=== PATIENT | female | born 1990 ===

== ENCOUNTER 2019-09-04 16:42 | Inpatient (IN) | payer BC ==
[2019-09-04] MEDS ORDERED: Water For Irrigation,Sterile 1,000 ML Container IRR PRN (17:38)
[2019-09-04] MEDS ORDERED: Terbutaline 1 MG/ML SDV SUBCUT PRN (17:38)
[2019-09-04] MEDS ORDERED: Tranexamic Acid 1,000 MG in Sodium Chloride 0.9% 100 ML IV PRN (17:38)
[2019-09-04] MEDS ORDERED: Misoprostol 25 MCG (1/4 of 100 MCG) Tab VAG PRN (17:38)
[2019-09-04] MEDS ORDERED: Misoprostol 200 MCG Tab PO PRN (17:38)
[2019-09-04] MEDS ORDERED: Methylergonovine 0.2 MG/1 ML Amp IM PRN (17:38)
[2019-09-04] MEDS ORDERED: Ondansetron 4 MG/2 ML SDV IVPUSH PRN (17:38)
[2019-09-04] MEDS ORDERED: Nalbuphine 10 MG/1 ML Vial IVPUSH PRN (17:38)
[2019-09-04] MEDS ORDERED: Sodium Chloride 0.9% 10 ML Syringe FLUSH PRN (17:38)
[2019-09-04] MEDS ORDERED: Carboprost Tromethamine 250 MCG/1 ML Amp IM PRN (17:38)
[2019-09-04] MEDS ORDERED: Lidocaine 1% 50 ML MDV INJECT PRN (17:38)
[2019-09-04] MEDS ORDERED: Sodium Chloride 0.9% 10 ML SDV IV PRN (17:38)
[2019-09-04] MEDS ORDERED: Sodium Chloride 0.9% 2.5 ML Syringe FLUSH PRN (17:38)
[2019-09-04] MEDS ORDERED: Oxytocin/0.9 % Sodium Chloride 30 UNIT/500 ML BAG IV SCH ×2 (17:45)
[2019-09-04] MEDS ORDERED: Ampicillin 2 GM in Sodium Chloride 0.9% 100 ML IV ONE (18:00)
[2019-09-04] MEDS: Lactated Ringers 1,000 ML IV SCH (18:06)
[2019-09-04 18:32] LABS: BLOOD UREA NITROGEN,BUN 15 mg/dL (7.0-18.0); CARBON DIOXIDE,CO2 23.5 mmol/L (21.0-32.0); CHLORIDE,CL 103 mmol/L (98-107); GLUCOSE RANDOM 84 mg/dL (74-106); SODIUM,NA 140 mmol/L (136-145)
[2019-09-04] MEDS: Ampicillin 1 GM in Sodium Chloride 0.9% 50 ML IV SCH (22:29)
[2019-09-04] MEDS: Misoprostol 25 MCG (1/4 of 100 MCG) Tab VAG PRN (22:35)
[2019-09-05] MEDS: Ampicillin 1 GM in Sodium Chloride 0.9% 50 ML IV SCH ×6 (02:44→23:48)
[2019-09-05] MEDS: Misoprostol 25 MCG (1/4 of 100 MCG) Tab VAG PRN (02:48)
[2019-09-05] MEDS: Butorphanol 1 MG/ML SDV IVPUSH PRN ×2 (10:34→13:44)
[2019-09-05] MEDS: Lactated Ringers 1,000 ML IV SCH ×2 (13:08→15:24)
[2019-09-05] MEDS ORDERED: Magnesium Sulfate/Water 20 GM/500 ML BAG IV SCH (14:30)
[2019-09-05] MEDS ORDERED: Magnesium Sulfate/Water 4 GM in Premix Bag 1 BAG IV ONE (14:30)
[2019-09-05] MEDS ORDERED: Calcium Gluconate 10% 1 GM/10 ML SDV IV PRN (14:30)
[2019-09-05] MEDS ORDERED: Bupivicaine/fentaNYL/NS 250 ML ONE (14:39)
[2019-09-05] MEDS ORDERED: fentaNYL 100 MCG/2 ML SDV ONE (14:52)
--- NOTE | 2019-09-05 15:33 | PCM.PREANE ---
Preanesthetic Assessment - Procedure Proposed Procedure: Continuous Labor Epidural - Anesthesia/Transfusion/Family Hx Anesthesia History: Prior Anesthesia Without Reaction Transfusion History: No Prior Transfusion(s) - Review of Systems General: No Symptoms Pulmonary: No Symptoms Cardiovascular: No Symptoms Gastrointestinal: No Symptoms Neurological: No Symptoms Other: Reports: None - Physical Assessment Height: 5 ft 4 in Weight: 130.635 kg ASA Class: 3 Mental Status: Alert & Oriented x3 Airway Class: Mallampati = 2 Dentition: Reports: Normal Dentition Thyro-Mental Finger Breadths: 3 Mouth Opening Finger Breadths: 3 ROM/Head Extension: Full Lungs: Clear to Auscultation, Normal Respiratory Effort Cardiovascular: Regular Rate, Regular Rhythm - Lab Values: Laboratory Last Values WBC 13.18 K/uL (4.0-11.0) H 09/04/19 17: RBC 4.50 M/uL (4.30-5.90) 09/04/19 17: Hgb 13.1 g/dL (12.0-16.0) 09/04/19 17: Hct 39.6 % (36.0-46.0) 09/04/19 17: MCV 88.0 fL (80.0-98.0) 09/04/19 17: MCH 29.1 pg (27.0-32.0) 09/04/19 17: MCHC 33.1 g/dL (31.0-37.0) 09/04/19 17: RDW Std Deviation 50.6 fl (28.0-62.0) 09/04/19: RDW Coeff of Alia 16 % (11.0-15.0) H 09/04/19 17: Plt Count 264 K/uL (150-400) 09/04/19 17: MPV 13.40 fL (7.40-12.00) H 09/04/19 17: Nucleated RBC % 0.0 /100WBC 09/04/19 17: Nucleated RBCs # 0 K/uL 09/04/19 17: Sodium 140 mmol/L (136-145) 09/04/19 17: Potassium 4.0 mmol/L (3.5-5.1) 09/04/19 17: Chloride 103 mmol/L (98-107) 09/04/19 17:26 Carbon Dioxide 23.5 mmol/L (21.0-32.0) 09/04/19 17:26 BUN 15 mg/dL (7.0-18.0) 09/04/19 17:26 Creatinine 0.8 mg/dL (0.6-1.0) 09/04/19 17:26 Est Cr Clr Drug Dosing 90.41 mL/min 09/04/19 17:26 Estimated GFR (MDRD) > 60.0 ml/min 09/04/19 17:26 Glucose 84 mg/dL (74-106) 09/04/19 17:26 Uric Acid 4.9 mg/dL (2.6-7.2) 09/04/19 17:26 Calcium 9.3 mg/dL (8.5-10.1) 09/04/19 17:26 Total Bilirubin 0.2 mg/dL (0.2-1.0) 09/04/19 17:26 AST 26 IU/L (15-37) 09/04/19 17:26 ALT 19 IU/L (14-63) 09/04/19 17:26 Alkaline Phosphatase 118 U/L (46-116) H 09/04/19 17:26 Total Protein 6.3 g/dL (6.4-8.2) L 09/04/19 17:26 Albumin 2.6 g/dL (3.4-5.0) L 09/04/19 17:26 Globulin 3.7 g/dL (2.6-4.0) 09/04/19 17:26 Albumin/Globulin Ratio 0.7 (0.9-1.6) L 09/04/19 17:26 Ur Random Creatinine 131.4 mg/dL 09/04/19 16:30 U Random Total Protein 40.8 mg/dL (<11.9) H 09/04/19 16:30 Protein/Creatinin Ratio 0.3 09/04/19 16:30 SARS-CoV-2 RNA (RT-PCR) NEGATIVE (NEGATIVE) 09/04/19 17:33 Blood Type O POSITIVE 09/04/19 17:26 Antibody Screen NEGATIVE 09/04/19 17:26 - Allergies Allergies/Adverse Reactions: Allergies Allergy/AdvReac Type Severity Reaction Status Date / Time No Known Allergies Allergy Verified 09/04/19 17:35 - Anesthesia Plan Free Text/Narrative:: Continuous Labor Epidural - Acknowledgements Anesthesia Type Planned: Epidural Pt an Appropriate Candidate for the Planned Anesthesia: Yes Alternatives and Risks of Anesthesia Discussed w Pt/Guardian: Yes Pt/Guardian Understands and Agrees with Anesthesia Plan: Yes PreAnesthesia Questionnaire HEENT History: Reports: Impaired Vision Cardiovascular History: Reports: Other (See Below) Other Cardiovascular History: PIH Respiratory History: Reports: None Gastrointestinal History: Reports: None Genitourinary History: Reports: None [employer] History: Reports: : 2 Para: 1 LMP (Approximate): Musculoskeletal History: Reports: Other (See Below) Other Musculoskeletal History: hx broken right foot Neurological History: Reports: None Psychiatric History: Reports: None Endocrine/Metabolic History: Reports: None Hematologic History: Reports: None Immunologic History: Reports: None Oncologic (Cancer) History: Reports: None Dermatologic History: Reports: None - Infectious Disease History Infectious Disease History: Reports: None - Past Surgical History HEENT Surgical History: Reports: Oral Surgery Cardiovascular Surgical History: Reports: None Musculoskeletal Surgical History: Reports: None - SUBSTANCE USE Smoking Status *Q: Never Smoker Recreational Drug Use History: No - HOME MEDS Home Medications: Home Meds Acetaminophen [Tylenol Extra Strength] 1 - 2 tab PO PRN 09/04/19 [History] Calcium Carbonate [Tums Extra Strength] 1 - 2 tab PO PRN 09/04/19 [History] No122/Iron/Folic Acid [ Multi Tablet] 1 tab PO DAILY 09/04/19 [History] - CURRENT (IN HOUSE) MEDS Current Meds: Current Medications Butorphanol Tartrate (Stadol) 1 mg IVPUSH Q1H PRN PRN Reason: Pain Last Admin: 09/05/19 13:44 Dose: 1 mg Documented by: Calcium Gluconate (Calcium Gluconate) 1 gm IV ASDIRECTED PRN PRN Reason: respiratory distress Carboprost Tromethamine (Hemabate Ds) 250 mcg IM ASDIRECTED PRN PRN Reason: Post Hemorrhage Oxytocin/Sodium Chloride (Oxytocin 30 Unit/500 Ml-Ns) 30 unit in 500 mls @ 999 mls/hr IV TITRATE KARISHMA Tranexamic Acid 1,000 mg/ (Sodium Chloride) 110 mls @ 660 mls/hr IV ONETIME PRN PRN Reason: Bleeding Oxytocin/Sodium Chloride (Oxytocin 30 Unit/500 Ml-Ns) 30 unit in 500 mls @ 2 mls/hr IV TITRATE [facility]; Protocol Last Titration: 09/05/19 15:23 Dose: 0 munits/min, 0 mls/hr Documented by: Ampicillin Sodium 1 gm/ Sodium (Chloride) 50 mls @ 100 mls/hr IV Q4H [facility] Last Admin: 09/05/19 14:04 Dose: 100 mls/hr Documented by: Lactated Ringer's (Ringers, Lactated) 1,000 mls @ 150 mls/hr IV ASDIRECTED [facility] Last Admin: 09/05/19 15:24 Dose: 999 mls/hr Documented by: Magnesium Sulfate (Magnesium Sulfate In Water Premix) 20 gm in 500 mls @ 50 mls/hr IV ASDIRECTED [facility] Lidocaine HCl (Xylocaine 1%) 50 ml INJECT ONETIME PRN PRN Reason: Laceration repair Methylergonovine Maleate (Methergine) 0.2 mg IM ASDIRECTED PRN PRN Reason: Post Hemorrhage Misoprostol (Cytotec) 200 mcg PO ONETIME PRN PRN Reason: Post Hemorrhage Misoprostol (Cytotec) 25 mcg VAG ONETIME PRN PRN Reason: Cervical Ripening Last Admin: 09/04/19 18:10 Dose: 25 mcg Documented by: Misoprostol (Cytotec) 25 mcg VAG Q4H PRN PRN Reason: Cervical Ripening Last Admin: 09/05/19 02:48 Dose: 25 mcg Documented by: Nalbuphine HCl (Nubain) 10 mg IVPUSH Q1H PRN PRN Reason: Pain (severe 7-10) Ondansetron HCl (Zofran) 4 mg IVPUSH Q6H PRN PRN Reason: Nausea/Vomiting Sodium Chloride (Saline Flush) 10 ml FLUSH ASDIRECTED PRN PRN Reason: Keep Vein Open Sodium Chloride (Saline Flush) 2.5 ml FLUSH ASDIRECTED PRN PRN Reason: Keep Vein Open Sodium Chloride (Normal Saline) 10 ml IV ASDIRECTED PRN PRN Reason: IV Use Sterile Water (Sterile Water For Irrigation) 1,000 ml IRR ASDIRECTED PRN PRN Reason: delivery Terbutaline Sulfate (Brethine) 0.25 mg SUBCUT ASDIRECTED PRN PRN Reason: Tacysystole Discontinued Medications Fentanyl (Sublimaze) Confirm Administered Dose 100 mcg .ROUTE .STK-MED ONE Stop: 09/05/19 14:53 Ampicillin Sodium 2 gm/ Sodium (Chloride) 100 mls @ 200 mls/hr IV ONETIME ONE Stop: 09/04/19 18:29 Last Admin: 09/04/19 18:06 Dose: 200 mls/hr Documented by: Magnesium Sulfate 4 gm/ Premix 100 mls @ 300 mls/hr IV BOLUS ONE Stop: 09/05/19 14:49 Fentanyl/Bupivacaine HCl (Fentanyl/Bupivacaine/Ns 2 Mcg-0.125% 250 Ml) Confirm Administered Dose 250 mls @ as directed .ROUTE .STK-MED ONE Stop: 09/05/19 14:40
[2019-09-05] MEDS ORDERED: Bisacodyl 10 MG Supp RECTAL PRN (18:57)
[2019-09-05] MEDS ORDERED: Ibuprofen 400 MG Tab PO PRN (18:57)
[2019-09-05] MEDS ORDERED: Benzocaine/Menthol 20%-0.5% Spray 78 GM Cannister TOP PRN (18:57)
[2019-09-05] MEDS ORDERED: Acetaminophen 500 MG Tab PO PRN ×2 (18:57)
[2019-09-05] MEDS ORDERED: Witch Hazel Medicated Pads 40/Jar TOP PRN (18:57)
[2019-09-05] MEDS ORDERED: Lanolin 100% Cream 7 GM Tube TOP PRN (18:57)
--- NOTE | 2019-09-06 03:34 | OR ---
SURGEON: Liang Lee MD DATE OF PROCEDURE: 09/05/2019 INDICATION FOR PROCEDURE: A 29-year-old G2, P1-0-0-1 at 40 weeks and 4 days, admitted for induction of labor due to oligohydramnios and preeclampsia without severe features. She was found to have an TEA of 4.3. Her blood pressure was mildly elevated at 140/90s. She was asymptomatic. Preeclampsia labs were completed, which were normal except for a protein creatinine ratio of 0.3. She received 3 doses of Cytotec and was started on Pitocin. She is GBS positive and received ampicillin. She continued to make cervical change on Pitocin and had AROM. She then had moderate amount of blood clots, likely from marginal placental abruption. The heart rate tracing was mostly category 1 with episodes of early and late decels. IUPC was placed and induction continued. Her blood pressure continued to be normotensive to low mild ranges. She progressed to fully dilated and began pushing with contractions. PREOPERATIVE DIAGNOSES: 1. Gutierres intrauterine at 40 weeks and 4 days. 2. Oligohydramnios. 3. Preeclampsia without severe features. 4. Marginal placental abruption. POSTOPERATIVE DIAGNOSES: 1. Gutierres intrauterine at 40 weeks and 4 days. 2. Oligohydramnios. 3. Preeclampsia without severe features. 4. Marginal placental abruption. ANESTHESIA: Epidural. ANESTHESIOLOGIST: FINDINGS: Viable male infant, score of 8 and 9, weight of 7 pounds and 6 ounces. The baby had nuchal cord x2 and body cord x1. ESTIMATED BLOOD LOSS: 300 mL. DESCRIPTION OF PROCEDURE: The patient pushed for approximately 30 minutes with good descent from 0 station. head delivered in occiput-anterior position over an intact perineum. A tight double nuchal cord was noted. Anterior shoulder delivered easily, followed by posterior shoulder and remaining body. Nuchal cord was reduced after delivery. She also had a body cord x1. The baby was placed on maternal chest and evaluated by awaiting nursery staff. Baby was pink, crying, and moving all extremities immediately after delivery. Umbilical cord was clamped and cut after 60 seconds and no longer pulsating. Umbilical cord gases were obtained. The placenta was removed with gentle traction on the umbilical cord. It was examined and found to be intact with 3-vessel cord. Fundal massage was performed and the uterus was firm and below the umbilicus. The bleeding was light. The perineum was examined and no lacerations were noted. She was given care instructions and preeclampsia precautions were reviewed. She tolerated the procedure well without complications. JACLYN PEREZ /[id number] MTDD
[2019-09-06] MEDS: Ibuprofen 800 MG Tab PO PRN ×3 (03:56→23:58)
[2019-09-06 06:43] LABS: BLOOD UREA NITROGEN,BUN 10 mg/dL (7.0-18.0); CARBON DIOXIDE,CO2 23.7 mmol/L (21.0-32.0); CHLORIDE,CL 106 mmol/L (98-107); GLUCOSE RANDOM 94 mg/dL (74-106); POTASSIUM,K 3.7 mmol/L (3.5-5.1); SODIUM,NA 138 mmol/L (136-145)
--- NOTE | 2019-09-06 07:51 | PCM48HPAN ---
Post Anesthesia Note - EVALUATION WITHIN 48HRS OF ANESTHETIC Vital Signs in Normal Range: Yes Patient Participated in Evaluation: Yes Respiratory Function Stable: Yes Airway Patent: Yes Cardiovascular Function Stable: Yes Hydration Status Stable: Yes Pain Control Satisfactory: Yes Nausea and Vomiting Control Satisfactory: Yes Mental Status Recovered: Yes Vital Signs: Last Vital Signs Temp 35.9 C L 09/06/19 05:11 Pulse 64 09/06/19 05:11 Resp 16 09/06/19 05:11 BP 125/64 09/06/19 05:11 Pulse Ox 93 L 09/06/19 05:11
[2019-09-06] MEDS: Docusate Sodium 100 MG Cap PO PRN (09:57)
--- NOTE | 2019-09-06 12:01 | PCM.PNPP ---
- General Info Date of Service: 09/06/19 Functional Status: Reports: Pain Controlled, Tolerating Diet, Ambulating, Urinating - Review of Systems General: Reports: No Symptoms HEENT: Reports: No Symptoms Pulmonary: Reports: No Symptoms Cardiovascular: Reports: No Symptoms Gastrointestinal: Reports: No Symptoms Genitourinary: Reports: No Symptoms Musculoskeletal: Reports: No Symptoms Skin: Reports: No Symptoms Neurological: Reports: No Symptoms Psychiatric: Reports: No Symptoms - Patient Data Vital Signs - Most Recent: Last Vital Signs Temp 36.1 C 09/06/19 08:00 Pulse 66 09/06/19 09:45 Resp 16 09/06/19 08:00 BP 111/66 09/06/19 09:45 Pulse Ox 95 09/06/19 08:00 Weight - Most Recent: 288 lb Lab Results - Last 24 Hours: Laboratory Results - last 24 hr 09/04/19 09/06/19 09/06/19 Range/Units 17:26 05:55 05:55 WBC 13.35 H (4.0-11.0) K/uL RBC 3.83 L (4.30-5.90) M/uL Hgb 11.2 L (12.0-16.0) g/dL Hct 34.0 L (36.0-46.0) % MCV 88.8 (80.0-98.0) fL MCH 29.2 (27.0-32.0) pg MCHC 32.9 (31.0-37.0) g/dL RDW Std Deviation 51.8 (28.0-62.0) fl RDW Coeff of Alia 16 H (11.0-15.0) % Plt Count 231 (150-400) K/uL MPV 13.10 H (7.40-12.00) fL Neut % (Auto) 75.6 (48.0-80.0) % Lymph % (Auto) 16.2 (16.0-40.0) % [place] % (Auto) 7.9 (0.0-15.0) % Eos % (Auto) 0.2 (0.0-7.0) % Baso % (Auto) 0.1 (0.0-1.5) % Neut # (Auto) 10.1 H (1.4-5.7) K/uL Lymph # (Auto) 2.2 (0.6-2.4) K/uL [place] # (Auto) 1.1 H (0.0-0.8) K/uL Eos # (Auto) 0.0 (0.0-0.7) K/uL Baso # (Auto) 0.0 (0.0-0.1) K/uL Nucleated RBC % 0.0 /100WBC Nucleated RBCs # 0 K/uL Sodium 138 (136-145) mmol/L Potassium 3.7 (3.5-5.1) mmol/L Chloride 106 (98-107) mmol/L Carbon Dioxide 23.7 (21.0-32.0) mmol/L BUN 10 (7.0-18.0) mg/dL Creatinine 0.8 (0.6-1.0) mg/dL Est Cr Clr Drug Dosing 90.41 mL/min Estimated GFR (MDRD) > 60.0 ml/min Glucose 94 (74-106) mg/dL Uric Acid (2.6-7.2) mg/dL Calcium 7.9 L (8.5-10.1) mg/dL Total Bilirubin 0.5 (0.2-1.0) mg/dL AST 21 (15-37) IU/L ALT 16 (14-63) IU/L Alkaline Phosphatase 94 (46-116) U/L Total Protein 5.5 L (6.4-8.2) g/dL Albumin 2.0 L (3.4-5.0) g/dL Globulin 3.5 (2.6-4.0) g/dL Albumin/Globulin Ratio 0.6 L (0.9-1.6) Blood Type O POSITIVE Antibody Screen NEGATIVE Crossmatch See Detail 09/06/19 Range/Units 05:55 WBC (4.0-11.0) K/uL RBC (4.30-5.90) M/uL Hgb (12.0-16.0) g/dL Hct (36.0-46.0) % MCV (80.0-98.0) fL MCH (27.0-32.0) pg MCHC (31.0-37.0) g/dL RDW Std Deviation (28.0-62.0) fl RDW Coeff of Alia (11.0-15.0) % Plt Count (150-400) K/uL MPV (7.40-12.00) fL Neut % (Auto) (48.0-80.0) % Lymph % (Auto) (16.0-40.0) % [place] % (Auto) (0.0-15.0) % Eos % (Auto) (0.0-7.0) % Baso % (Auto) (0.0-1.5) % Neut # (Auto) (1.4-5.7) K/uL Lymph # (Auto) (0.6-2.4) K/uL [place] # (Auto) (0.0-0.8) K/uL Eos # (Auto) (0.0-0.7) K/uL Baso # (Auto) (0.0-0.1) K/uL Nucleated RBC % /100WBC Nucleated RBCs # K/uL Sodium (136-145) mmol/L Potassium (3.5-5.1) mmol/L Chloride (98-107) mmol/L Carbon Dioxide (21.0-32.0) mmol/L BUN (7.0-18.0) mg/dL Creatinine (0.6-1.0) mg/dL Est Cr Clr Drug Dosing mL/min Estimated GFR (MDRD) ml/min Glucose (74-106) mg/dL Uric Acid 5.3 (2.6-7.2) mg/dL Calcium (8.5-10.1) mg/dL Total Bilirubin (0.2-1.0) mg/dL AST (15-37) IU/L ALT (14-63) IU/L Alkaline Phosphatase (46-116) U/L Total Protein (6.4-8.2) g/dL Albumin (3.4-5.0) g/dL Globulin (2.6-4.0) g/dL Albumin/Globulin Ratio (0.9-1.6) Blood Type Antibody Screen Crossmatch Med Orders - Current: Current Medications Acetaminophen (Tylenol Extra Strength) 500 mg PO Q4H PRN PRN Reason: Pain Acetaminophen (Tylenol Extra Strength) 1,000 mg PO Q4H PRN PRN Reason: Pain Benzocaine/Menthol (Dermoplast Pain Relief 20%-0.5% [place]) 0 gm TOP ASDIRECTED PRN PRN Reason: Perineal Comfort Measure Bisacodyl (Dulcolax) 10 mg RECTAL ONETIME PRN PRN Reason: Constipation Calcium Gluconate (Calcium Gluconate) 1 gm IV ASDIRECTED PRN PRN Reason: respiratory distress Carboprost Tromethamine (Hemabate Ds) 250 mcg IM ASDIRECTED PRN PRN Reason: Post Hemorrhage Docusate Sodium (Colace) 100 mg PO BID PRN PRN Reason: Constipation Last Admin: 09/06/19 09:57 Dose: 100 mg Documented by: Emollient Ointment (Lansinoh Hpa) 0 gm TOP ASDIRECTED PRN PRN Reason: Sore Nipples Oxytocin/Sodium Chloride (Oxytocin 30 Unit/500 Ml-Ns) 30 unit in 500 mls @ 999 mls/hr IV TITRATE [facility] Tranexamic Acid 1,000 mg/ (Sodium Chloride) 110 mls @ 660 mls/hr IV ONETIME PRN PRN Reason: Bleeding Oxytocin/Sodium Chloride (Oxytocin 30 Unit/500 Ml-Ns) 30 unit in 500 mls @ 2 mls/hr IV TITRATE [facility]ISH[facility]; Protocol Last Titration: 09/05/19 18:33 Dose: 999 munits/min, 999 mls/hr Documented by: Lactated Ringer's (Ringers, Lactated) 1,000 mls @ 150 mls/hr IV ASDIRECTED KARISHMA Last Infusion: 09/05/19 16:00 Dose: 150 mls/hr Documented by: Magnesium Sulfate (Magnesium Sulfate In Water Premix) 20 gm in 500 mls @ 50 mls/hr IV ASDIRECTED [facility] Ibuprofen (Motrin) 400 mg PO Q4H PRN PRN Reason: Pain Ibuprofen (Motrin) 800 mg PO Q6H PRN PRN Reason: Pain Last Admin: 09/06/19 09:57 Dose: 800 mg Documented by: Lidocaine HCl (Xylocaine 1%) 50 ml INJECT ONETIME PRN PRN Reason: Laceration repair Methylergonovine Maleate (Methergine) 0.2 mg IM ASDIRECTED PRN PRN Reason: Post Hemorrhage Misoprostol (Cytotec) 200 mcg PO ONETIME PRN PRN Reason: Post Hemorrhage Misoprostol (Cytotec) 25 mcg VAG ONETIME PRN PRN Reason: Cervical Ripening Last Admin: 09/04/19 18:10 Dose: 25 mcg Documented by: Misoprostol (Cytotec) 25 mcg VAG Q4H PRN PRN Reason: Cervical Ripening Last Admin: 09/05/19 02:48 Dose: 25 mcg Documented by: Ondansetron HCl (Zofran) 4 mg IVPUSH Q6H PRN PRN Reason: Nausea/Vomiting Sodium Chloride (Saline Flush) 10 ml FLUSH ASDIRECTED PRN PRN Reason: Keep Vein Open Sodium Chloride (Saline Flush) 2.5 ml FLUSH ASDIRECTED PRN PRN Reason: Keep Vein Open Sodium Chloride (Normal Saline) 10 ml IV ASDIRECTED PRN PRN Reason: IV Use Terbutaline Sulfate (Brethine) 0.25 mg SUBCUT ASDIRECTED PRN PRN Reason: Tacysystole Witch Cee (Tucks) 1 pad TOP ASDIRECTED PRN PRN Reason: comfort care Discontinued Medications Butorphanol Tartrate (Stadol) 1 mg IVPUSH Q1H PRN PRN Reason: Pain Last Admin: 09/05/19 13:44 Dose: 1 mg Documented by: Fentanyl (Sublimaze) Confirm Administered Dose 100 mcg .ROUTE .STK-MED ONE Stop: 09/05/19 14:53 Last Admin: 09/05/19 19:52 Dose: Not Given Documented by: Ampicillin Sodium 1 gm/ Sodium (Chloride) 50 mls @ 100 mls/hr IV Q4H [facility] Last Admin: 09/05/19 23:48 Dose: Not Given Documented by: Ampicillin Sodium 2 gm/ Sodium (Chloride) 100 mls @ 200 mls/hr IV ONETIME ONE Stop: 09/04/19 18:29 Last Admin: 09/04/19 18:06 Dose: 200 mls/hr Documented by: Magnesium Sulfate 4 gm/ Premix 100 mls @ 300 mls/hr IV BOLUS ONE Stop: 09/05/19 14:49 Last Admin: 09/05/19 19:52 Dose: Not Given Documented by: Fentanyl/Bupivacaine HCl (Fentanyl/Bupivacaine/Ns 2 Mcg-0.125% 250 Ml) Confirm Administered Dose 250 mls @ as directed .ROUTE .STK-MED ONE Stop: 09/05/19 14:40 Last Admin: 09/05/19 19:52 Dose: Not Given Documented by: Nalbuphine HCl (Nubain) 10 mg IVPUSH Q1H PRN PRN Reason: Pain (severe 7-10) Sterile Water (Sterile Water For Irrigation) 1,000 ml IRR ASDIRECTED PRN PRN Reason: delivery - Infant Interaction Infant Interaction: Holding Infant Infant Feeding: Attempted ; Nursed Fair/Poor, Bottle Fed Infant Support Person: Significant Other - Recovery Exam Fundal Tone: Firm Fundal Level: 1 Fingerbreadths Above Umbilicus Fundal Placement: Midline Lochia Amount: Scant Lochia Color: Rubra/Red Perineum Description: Intact, Minimal Bruising/Swelling Episiotomy/Laceration: None Bladder Status: Voiding Urinary Elimination: Voided - Exam General: Oriented, Cooperative, No Acute Distress HEENT: Pupils Equal, Pupils Reactive, EOMI Neck: Supple, Trachea Midline, No JVD Lungs: Normal Respiratory Effort GI/Abdominal Exam: Soft, Non-Tender, No Organomegaly, No Distention Extremities: Normal Inspection, Normal Range of Motion, Non-Tender, Other (2+ nonpitting edema) Skin: Warm, Dry, Intact Neurological: No New Focal Deficit Psy/Mental Status: Alert, Normal Affect, Normal Mood - Problem List Review Problem List Initiated/Reviewed/Updated: Yes - My Orders Last 24 Hours: My Active Orders 09/05/19 14:30 Height and Weight [RC] DAILY Intake and Output [RC] QSHIFT Vital Signs [RC] ASDIRECTED Calcium Gluconate 1 gm IV ASDIRECTED PRN Magnesium Sulfate/Water [Magnesium Sulfate in Water Premix] 20 gm in 500 ml IV ASDIRECTED Deep Tendon Reflexes [WOMSER] Q1H Electronic Heart Tones Ext w TOCO [WOMSER] Per Unit Routine 09/05/19 14:31 Equipment to Bedside [RC] PRN 09/05/19 14:32 Notify Provider Status Change [RC] ASDIRECTED 09/05/19 15:30 Deep Tendon Reflexes [WOMSER] Q1H 09/05/19 Dinner Regular Diet [DIET] 09/05/19 16:30 Deep Tendon Reflexes [WOMSER] Q1H 09/05/19 17:30 Deep Tendon Reflexes [WOMSER] Q1H 09/05/19 17:31 RED BLOOD CELLS LP [BBK] Stat 09/05/19 18:30 Deep Tendon Reflexes [WOMSER] Q1H 09/05/19 18:57 Acetaminophen [Tylenol Extra Strength] 1,000 mg PO Q4H PRN Acetaminophen [Tylenol Extra Strength] 500 mg PO Q4H PRN Benzocaine/Menthol [Dermoplast Pain Relief 20%-0.5% [place]] 0 gm TOP ASDIRECTED PRN Docusate Sodium [Colace] 100 mg PO BID PRN Ibuprofen [Motrin] 400 mg PO Q4H PRN Ibuprofen [Motrin] 800 mg PO Q6H PRN Lanolin [Lansinoh HPA] See Dose Instructions TOP ASDIRECTED PRN bisacodyL [Dulcolax] 10 mg RECTAL ONETIME PRN witch Cee [Tucks] 1 pad TOP ASDIRECTED PRN 09/05/19 18:58 Patient Status [ADT] Routine May Shower [RC] ASDIRECTED Up ad [place] [RC] ASDIRECTED Vital Signs [RC] PER UNIT ROUTINE Assess Lochia [WOMSER] Per Unit Routine Assess Uterine Involution [WOMSER] Per Unit Routine Peripheral IV Discontinue [OM.PC] Routine 09/05/19 18:59 Ice Therapy [OM.PC] Per Unit Routine Perineal Care [OM.PC] Per Unit Routine 09/05/19 19:00 Cooling Warming Measures [RC] ASDIRECTED 09/05/19 19:30 Deep Tendon Reflexes [WOMSER] Q1H 09/05/19 20:30 Deep Tendon Reflexes [WOMSER] Q1H 09/05/19 21:30 Deep Tendon Reflexes [WOMSER] Q1H 09/05/19 22:30 Deep Tendon Reflexes [WOMSER] Q1H 09/05/19 23:30 Deep Tendon Reflexes [WOMSER] Q1H 09/06/19 00:30 Deep Tendon Reflexes [WOMSER] Q1H 09/06/19 01:30 Deep Tendon Reflexes [WOMSER] Q1H 09/06/19 02:30 Deep Tendon Reflexes [WOMSER] Q1H 09/06/19 03:30 Deep Tendon Reflexes [WOMSER] Q1H 09/06/19 04:30 Deep Tendon Reflexes [WOMSER] Q1H 09/06/19 05:30 Deep Tendon Reflexes [WOMSER] Q1H 09/06/19 06:30 Deep Tendon Reflexes [WOMSER] Q1H 09/06/19 07:30 Deep Tendon Reflexes [WOMSER] Q1H 09/06/19 08:30 Deep Tendon Reflexes [WOMSER] Q1H 09/06/19 09:30 Deep Tendon Reflexes [WOMSER] Q109/06/19 10:30 Deep Tendon Reflexes [WOMSER] Q1H 09/06/19 11:30 Deep Tendon Reflexes [WOMSER] Q1H 09/06/19 12:30 Deep Tendon Reflexes [WOMSER] Q109/06/19 13:30 Deep Tendon Reflexes [WOMSER] Q109/06/19 14:30 Deep Tendon Reflexes [WOMSER] Q1H - Assessment Assessment:: 29yo PPD1 s/p , complicated with oligohydramnios, preeclampsia without severe features and marginal placental abruption - Plan Plan:: - vitals stable, BP normotensive - Hgb 11.2, bleeding light, denies s/s of anemia - ambulating and voiding - breast and bottlefeeding - plan for discharge tomorrow. Will check BP at home daily, reviewed s/s of preeclampsia. BP check in 1 week.
[2019-09-07] MEDS: Docusate Sodium 100 MG Cap PO PRN (10:50)
--- NOTE | 2019-09-07 10:53 | PCM.PNPP ---
- General Info Date of Service: 09/07/19 Functional Status: Reports: Pain Controlled, Tolerating Diet, Ambulating, Urinating - Review of Systems General: Reports: No Symptoms HEENT: Reports: No Symptoms Pulmonary: Reports: No Symptoms Cardiovascular: Reports: No Symptoms Gastrointestinal: Reports: No Symptoms Genitourinary: Reports: No Symptoms Musculoskeletal: Reports: No Symptoms Skin: Reports: No Symptoms Neurological: Reports: No Symptoms Psychiatric: Reports: No Symptoms - Patient Data Vital Signs - Most Recent: Last Vital Signs Temp 36.3 C 09/07/19 08:00 Pulse 84 09/07/19 08:00 Resp 12 09/07/19 08:00 BP 129/60 09/07/19 08:00 Pulse Ox 97 09/07/19 08:00 Weight - Most Recent: 288 lb Lab Results - Last 24 Hours: Laboratory Results - last 24 hr 09/04/19 Range/Units 17:26 RPR Non-Reac (Non-Reac) Med Orders - Current: Current Medications Acetaminophen (Tylenol Extra Strength) 500 mg PO Q4H PRN PRN Reason: Pain Acetaminophen (Tylenol Extra Strength) 1,000 mg PO Q4H PRN PRN Reason: Pain Benzocaine/Menthol (Dermoplast Pain Relief 20%-0.5% [place]) 0 gm TOP ASDIRECTED PRN PRN Reason: Perineal Comfort Measure Bisacodyl (Dulcolax) 10 mg RECTAL ONETIME PRN PRN Reason: Constipation Calcium Gluconate (Calcium Gluconate) 1 gm IV ASDIRECTED PRN PRN Reason: respiratory distress Carboprost Tromethamine (Hemabate Ds) 250 mcg IM ASDIRECTED PRN PRN Reason: Post Hemorrhage Docusate Sodium (Colace) 100 mg PO BID PRN PRN Reason: Constipation Last Admin: 09/07/19 10:50 Dose: 100 mg Documented by: Emollient Ointment (Lansinoh Hpa) 0 gm TOP ASDIRECTED PRN PRN Reason: Sore Nipples Oxytocin/Sodium Chloride (Oxytocin 30 Unit/500 Ml-Ns) 30 unit in 500 mls @ 999 mls/hr IV TITRATE KARISHMA Tranexamic Acid 1,000 mg/ (Sodium Chloride) 110 mls @ 660 mls/hr IV ONETIME PRN PRN Reason: Bleeding Oxytocin/Sodium Chloride (Oxytocin 30 Unit/500 Ml-Ns) 30 unit in 500 mls @ 2 mls/hr IV TITRATE KARISHMA; Protocol Last Titration: 09/05/19 18:33 Dose: 999 munits/min, 999 mls/hr Documented by: Lactated Ringer's (Ringers, Lactated) 1,000 mls @ 150 mls/hr IV ASDIRECTED KARISHMA Last Infusion: 09/05/19 16:00 Dose: 150 mls/hr Documented by: Magnesium Sulfate (Magnesium Sulfate In Water Premix) 20 gm in 500 mls @ 50 mls/hr IV ASDIRECTED KARISHMA Ibuprofen (Motrin) 400 mg PO Q4H PRN PRN Reason: Pain Ibuprofen (Motrin) 800 mg PO Q6H PRN PRN Reason: Pain Last Admin: 09/06/19 23:58 Dose: 800 mg Documented by: Lidocaine HCl (Xylocaine 1%) 50 ml INJECT ONETIME PRN PRN Reason: Laceration repair Methylergonovine Maleate (Methergine) 0.2 mg IM ASDIRECTED PRN PRN Reason: Post Hemorrhage Misoprostol (Cytotec) 200 mcg PO ONETIME PRN PRN Reason: Post Hemorrhage Misoprostol (Cytotec) 25 mcg VAG ONETIME PRN PRN Reason: Cervical Ripening Last Admin: 09/04/19 18:10 Dose: 25 mcg Documented by: Misoprostol (Cytotec) 25 mcg VAG Q4H PRN PRN Reason: Cervical Ripening Last Admin: 09/05/19 02:48 Dose: 25 mcg Documented by: Ondansetron HCl (Zofran) 4 mg IVPUSH Q6H PRN PRN Reason: Nausea/Vomiting Sodium Chloride (Saline Flush) 10 ml FLUSH ASDIRECTED PRN PRN Reason: Keep Vein Open Sodium Chloride (Saline Flush) 2.5 ml FLUSH ASDIRECTED PRN PRN Reason: Keep Vein Open Sodium Chloride (Normal Saline) 10 ml IV ASDIRECTED PRN PRN Reason: IV Use Terbutaline Sulfate (Brethine) 0.25 mg SUBCUT ASDIRECTED PRN PRN Reason: Tacysystole Witch Cee (Tucks) 1 pad TOP ASDIRECTED PRN PRN Reason: comfort care Discontinued Medications Butorphanol Tartrate (Stadol) 1 mg IVPUSH Q1H PRN PRN Reason: Pain Last Admin: 09/05/19 13:44 Dose: 1 mg Documented by: Fentanyl (Sublimaze) Confirm Administered Dose 100 mcg .ROUTE .STK-MED ONE Stop: 09/05/19 14:53 Last Admin: 09/05/19 19:52 Dose: Not Given Documented by: Ampicillin Sodium 1 gm/ Sodium (Chloride) 50 mls @ 100 mls/hr IV Q4H KARISHMA Last Admin: 09/05/19 23:48 Dose: Not Given Documented by: Ampicillin Sodium 2 gm/ Sodium (Chloride) 100 mls @ 200 mls/hr IV ONETIME ONE Stop: 09/04/19 18:29 Last Admin: 09/04/19 18:06 Dose: 200 mls/hr Documented by: Magnesium Sulfate 4 gm/ Premix 100 mls @ 300 mls/hr IV BOLUS ONE Stop: 09/05/19 14:49 Last Admin: 09/05/19 19:52 Dose: Not Given Documented by: Fentanyl/Bupivacaine HCl (Fentanyl/Bupivacaine/Ns 2 Mcg-0.125% 250 Ml) Confirm Administered Dose 250 mls @ as directed .ROUTE .STK-MED ONE Stop: 09/05/19 14:40 Last Admin: 09/05/19 19:52 Dose: Not Given Documented by: Nalbuphine HCl (Nubain) 10 mg IVPUSH Q1H PRN PRN Reason: Pain (severe 7-10) Sterile Water (Sterile Water For Irrigation) 1,000 ml IRR ASDIRECTED PRN PRN Reason: delivery - Interaction Interaction: Holding Infant Infant Feeding: Attempted ; Nursed Fair/Poor, Bottle Fed Infant Support Person: Significant Other - Recovery Exam Fundal Tone: Firm Fundal Level: 2 Fingerbreadths Below Umbilicus Fundal Placement: Midline Lochia Amount: Scant Lochia Color: Rubra/Red Perineum Description: Intact, Minimal Bruising/Swelling Episiotomy/Laceration: None Bladder Status: Voiding Urinary Elimination: Voided - Exam General: Alert, Oriented, Cooperative, No Acute Distress HEENT: Pupils Equal, Pupils Reactive Neck: Supple, Trachea Midline, No JVD Lungs: Clear to Auscultation, Normal Respiratory Effort Cardiovascular: Regular Rate, Regular Rhythm, No Murmurs GI/Abdominal Exam: Normal Bowel Sounds, Soft, Non-Tender, No Distention Extremities: Normal Inspection, Normal Range of Motion, Non-Tender, No Pedal Edema Skin: Warm, Dry, Intact Wound/Incisions: Healing Well Neurological: No New Focal Deficit Psy/Mental Status: Alert, Normal Affect, Normal Mood - Problem List Review Problem List Initiated/Reviewed/Updated: Yes - My Orders Last 24 Hours: My Active Orders 09/06/19 10:30 Deep Tendon Reflexes [[facility]] Q1H 09/06/19 11:30 Deep Tendon Reflexes [[facility]] Q1H 09/06/19 12:30 Deep Tendon Reflexes [[facility]ER] Q1H 09/06/19 13:30 Deep Tendon Reflexes [[facility]ER] Q1H 09/06/19 14:30 Deep Tendon Reflexes [[facility]OMSER] Q1H 09/07/19 10:50 Ready for Discharge [RC] PER UNIT ROUTINE - Assessment Assessment:: 29yo PPD2 s/p , complicated with oligohydramnios, preeclampsia w ithout severe features and marginal placental abruption - Plan Plan:: - vitals stable, BP normotensive - Hgb 11.2, bleeding light, denies s/s of anemia - ambulating and voiding - breast and bottlefeeding - stable for discharge today. Reviewed care instructions. Will check BP at home daily, reviewed s/s of preeclampsia. BP check in 1 week.
== END 2019-09-07 13:15 | disposition home or self-care (01) | DRG 560 ==
LOC: MW.OB 16:42 → OBSVTOIN 09-05 18:58 → MW.OB 09-05 21:30
PROVIDERS: ADMIT Obstetrics & Gynecology; ATTEND Obstetrics & Gynecology
PROC: 10E0XZZ Delivery of Products of Conception, External Approach (ICD-10-PCS; principal; 2019-09-05)
PROC: 10907ZC Drainage of Amniotic Fluid, Therapeutic from Products of Conception, Via Natural or Artificial Opening (ICD-10-PCS; 2019-09-05)
PROC: 3E033VJ Introduction of Other Hormone into Peripheral Vein, Percutaneous Approach (ICD-10-PCS; 2019-09-05)
PROC: 10H07YZ Insertion of Other Device into Products of Conception, Via Natural or Artificial Opening (ICD-10-PCS; 2019-09-05)
PROC: 3E0P7VZ Introduction of Hormone into Female Reproductive, Via Natural or Artificial Opening (ICD-10-PCS; 2019-09-05)
PROC: 4A1HXCZ Monitoring of Products of Conception, Cardiac Rate, External Approach (ICD-10-PCS; 2019-09-05)
PROC: 3E0R3BZ Introduction of Anesthetic Agent into Spinal Canal, Percutaneous Approach (ICD-10-PCS; 2019-09-05)
DX: O48.0 Post-term pregnancy (principal); O41.03X0 Oligohydramnios, third trimester, not applicable or unspecified; O14.04 Mild to moderate pre-eclampsia, complicating childbirth; O99.824 Streptococcus B carrier state complicating childbirth; Z3A.40 40 weeks gestation of pregnancy; Z37.0 Single live birth; O69.1XX0 Labor and delivery complicated by cord around neck, with compression, not applicable or unspecified
CPT/HCPCS: 36415; 51702; 59025; 59409; 80053; 82570; 84156; 84550; 85025; 85027; 86592; 86593; 86850; 86900; 86901; 86920; 86921; 86922; A9270-GY; J0290; J0595; J2590; J7050; J7120; U0002